=== PATIENT | male | born 1995 | race Hispanic/Latino ===

== ENCOUNTER 2017-04-13 13:14 | Emergency (ER) | payer SELFPAY ==
[2017-04-13] MEDS ORDERED: Bupivacaine 0.5% 10 ML VIAL ONE (13:41)
--- NOTE | 2017-04-13 17:40 | RAD ---
LEFT HAND THREE VIEWS 04/13/2017 FINDINGS: A fracture of the distal fifth metacarpal is present at its neck, with mild volar angulation of the metacarpal head. The remainder of the hand appears intact. IMPRESSION: Angulated fracture of the distal fifth metacarpal. POS: HOME
--- NOTE | 2017-04-13 17:47 | RAD ---
LEFT HAND POST REDUCTION 04/13/2017 FINDINGS: A splint has been applied. The fracture of the distal fifth metacarpal has been reduced. There is slightly less angulation than before. IMPRESSION: Status post reduction of distal fifth metacarpal fracture. POS: HOME
== END 2017-04-13 14:34 | disposition home or self-care (01) ==
LOC: BURERS 13:14
DX: S62.337A Displaced fracture of neck of fifth metacarpal bone, left hand, initial encounter for closed fracture (principal); F31.9 Bipolar disorder, unspecified; F90.9 Attention-deficit hyperactivity disorder, unspecified type; F17.210 Nicotine dependence, cigarettes, uncomplicated; W23.0XXA Caught, crushed, jammed, or pinched between moving objects, initial encounter
CPT/HCPCS: 26605; J3490